=== PATIENT | male | born 1990 ===

== ENCOUNTER 2020-02-16 10:08 | Emergency (ER) | payer BC, MEDICAID ==
[2020-02-16 10:20] VITALS: TEMP 98.3
[2020-02-16 10:30] VITALS: RESP 20
[2020-02-16] MEDS ORDERED: IPRATROPIUM-ALBUTEROL 3 ML NEB INHALATION STA (10:36)
[2020-02-16] MEDS ORDERED: ACETAMINOPHEN TAB 325 MG TAB PO STA (10:37)
--- NOTE | 2020-02-16 11:21 | ED ---
URI HPI - General Chief Complaint: Upper Respiratory Infection Stated Complaint: covid symptoms Time Seen by Provider: 02/16/20 10:21 Source: patient, RN notes reviewed Mode of arrival: ambulatory Limitations: no limitations - History of Present Illness Initial Comments: This is a 30-year-old male presents emergency Department chief complaint of cough congestion. Patient states she's been sick last few days. Patient's daughter was seen in emergency department 3 days ago diagnosed with croup. 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 He reports fever at home along with increased nasal congestion, coughing. Patient states cough is nonproductive. Denies any shortness breath this time as he did region but has had some shortness of breath. - Related Data Home Medications Medication Instructions Recorded Confirmed Ibuprofen [Motrin Ib] 600 mg PO Q8H PRN 02/16/20 02/16/20 diphenhydrAMINE [Benadryl] 25 mg PO HS PRN 02/16/20 02/16/20 Previous Rx's Medication Instructions Recorded Azithromycin [Zithromax Z-pack] 0 mg PO DIRECTED #1 pack 02/16/20 Allergies Allergy/AdvReac Type Severity Reaction Status Date / Time Penicillins Allergy Rash/Hives Verified 02/16/20 10:56 Review of Systems ROS Statement: Those systems with pertinent positive or pertinent negative responses have been documented in the HPI. ROS Other: All systems not noted in ROS Statement are negative. Past Medical History Past Medical History: No Reported History History of Any Multi-Drug Resistant Organisms: None Reported Past Surgical History: Tonsillectomy Past Psychological History: Anxiety Smoking Status: Current every day smoker Past Alcohol Use History: Occasional Past Drug Use History: None Reported General Exam Limitations: no limitations General appearance: alert, in no apparent distress Head exam: Present: atraumatic, normocephalic, normal inspection Eye exam: Present: normal appearance, PERRL, EOMI. Absent: scleral icterus, conjunctival injection, periorbital swelling ENT exam: Present: normal exam, mucous membranes moist, TM's normal bilaterally Neck exam: Present: normal inspection, full ROM. Absent: tenderness, meningismus, lymphadenopathy Respiratory exam: Present: wheezes, rhonchi. Absent: normal lung sounds bilaterally, respiratory distress, rales, stridor Cardiovascular Exam: Present: regular rate, normal rhythm, normal heart sounds. Absent: systolic murmur, diastolic murmur, rubs, gallop, clicks GI/Abdominal exam: Present: soft, normal bowel sounds. Absent: distended, tenderness, guarding, rebound, rigid Back exam: Absent: CVA tenderness (R), CVA tenderness (L) Neurological exam: Present: alert, oriented X3 Skin exam: Present: warm, dry, intact, normal color. Absent: rash Course Vital Signs 02/16/20 02/16/20 02/16/20 10:16 10:28 11:20 Temperature 98.3 F Pulse Rate 99 110 H 106 H Respiratory 18 20 Rate Blood Pressure 139/84 O2 Sat by Pulse 98 96 Oximetry 02/16/20 11:30 Temperature Pulse Rate 104 H Respiratory Rate Blood Pressure O2 Sat by Pulse Oximetry Medical Decision Making - Medical Decision Making X-ray does not show any definite pneumonia though there is some increasing bronchial thickening in the right. Patient may have some tracheobronchitis be treated with azithromycin. Patient did have elevated testing which is pending he will have follow up for results and return for any worsening symptoms. Disposition Clinical Impression: Tracheobronchitis Disposition: HOME SELF-CARE Condition: Stable Instructions (If sedation given, give patient instructions): Upper Respiratory Infection (ED) Additional Instructions: Please follow up on COVID testing.Please return to the Emergency Department if symptoms worsen or any other concerns. Prescriptions: Azithromycin [Zithromax Z-pack] 0 mg PO DIRECTED #1 pack Is patient prescribed a controlled substance at d/c from ED?: No Referrals: Sridhar Mcguire DO [Primary Care Provider] - 1-2 days Time of Disposition: 11:55
--- NOTE | 2020-02-16 11:28 | XR ---
EXAMINATION TYPE: XR chest 2V DATE OF EXAM: 02/16/2020 CLINICAL HISTORY: Cough, shortness of breath TECHNIQUE: Frontal and lateral views of the chest are obtained. COMPARISON: Chest radiograph 02/22/2019 FINDINGS: The cardiomediastinal silhouette is within normal limits for size. Pulmonary vasculature i s normal. There is no focal air space opacity, pleural effusion, or pneumothorax seen. The osseous st ructures are intact. IMPRESSION: No acute cardiopulmonary process.
[2020-02-16 12:19] VITALS: BP 138/76; PULSE 93
== END 2020-02-16 12:21 | disposition home or self-care (01) ==
LOC: EC 10:08
DX: J40 Bronchitis, not specified as acute or chronic (principal); F17.200 Nicotine dependence, unspecified, uncomplicated; Z88.0 Allergy status to penicillin; Z20.828 Contact with and (suspected) exposure to other viral communicable diseases
CPT/HCPCS: 94640; 71046; 99283; U0003

== ENCOUNTER 2020-09-22 14:31 | Emergency (ER) | payer MEDICAID ==
[2020-09-22 14:40] VITALS: BP 148/80; TEMP 99.1
[2020-09-22] MEDS ORDERED: IPRATROPIUM-ALBUTEROL 3 ML NEB INHALATION STA ×2 (14:58→17:43)
[2020-09-22] MEDS ORDERED: ACETAMINOPHEN TAB 500 MG TAB PO STA (14:58)
[2020-09-22] MEDS ORDERED: methylPREDNISolone SOD SUCCI 125 MG/2 ML VIAL IV STA (14:58)
[2020-09-22] MEDS ORDERED: ALBUTEROL HFA INHALER INHALATION STA (15:05)
--- NOTE | 2020-09-22 15:23 | ED ---
General Adult HPI - General Chief complaint: Chest Pain Stated complaint: Chest pain Time Seen by Provider: 09/22/20 14:35 Source: patient, RN notes reviewed, old records reviewed Mode of arrival: wheelchair Limitations: no limitations - History of Present Illness Initial comments: This is a 30-year-old male who presents emergency Department with a past medical history significant for asthma. Patient comes in complaining of a 2 day history of difficulty breathing and some congestion. 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 Patient denies any fevers. Patient states he has some sharp chest pain particularly with deep breathing or coughing. Patient states she's developed a cough today. Patient denies any abdominal pain patient denies any loss of smell or taste per patient denies any diarrhea. - Related Data Previous Rx's Medication Instructions Recorded Ipratropium-Albuterol Nebulize 3 ml INHALATION Q4H #60 neb 09/22/20 [Duoneb 0.5 mg-3 mg/3 ml Soln] predniSONE [Deltasone] 40 mg PO DAILY #8 tab 09/22/20 Allergies Allergy/AdvReac Type Severity Reaction Status Date / Time Penicillins Allergy Rash/Hives Verified 09/22/20 15:47 Review of Systems ROS Statement: Those systems with pertinent positive or pertinent negative responses have been documented in the HPI. ROS Other: All systems not noted in ROS Statement are negative. Past Medical History Past Medical History: Asthma History of Any Multi-Drug Resistant Organisms: None Reported Past Surgical History: Tonsillectomy Past Psychological History: Anxiety Smoking Status: Former smoker Past Alcohol Use History: Rare Past Drug Use History: None Reported General Exam - General Exam Comments Initial Comments: GENERAL: Patient is well-developed and well-nourished. Patient is nontoxic and well- hydrated and is in no acute distress. ENT: Neck is soft and supple. No significant lymphadenopathy is noted. Oropharynx is clear. Moist mucous membranes. Neck has full range of motion without eliciting any pain. EYES: The sclera were anicteric and conjunctiva were pink and moist. Extraocular movements were intact and pupils were equal round and reactive to light. Eyelids were unremarkable. PULMONARY: Patient has diffuse wheezing and crackles bilaterally. CARDIOVASCULAR: There is a regular rate and rhythm without any murmurs gallops or rubs. ABDOMEN: Soft and nontender with normal bowel sounds. SKIN: Skin is clear with no lesions or rashes and otherwise unremarkable. NEUROLOGIC: Patient is alert and oriented x3. Cranial nerves II through XII are grossly intact. Motor and sensory are also intact. Normal speech, volume and content. Symmetrical smile. MUSCULOSKELETAL: Normal extremities with adequate strength and full range of motion. LYMPHATICS: No significant lymphadenopathy is noted PSYCHIATRIC: Normal psychiatric evaluation. Limitations: no limitations Course Vital Signs 09/22/20 09/22/20 09/22/20 14:36 16:58 17:10 Temperature 99.1 F Pulse Rate 110 H 86 88 Respiratory 22 18 18 Rate Blood Pressure 148/80 O2 Sat by Pulse 94 L Oximetry Medical Decision Making - Medical Decision Making EKG shows sinus tachycardia at 106 bpm NH interval 150 QRS is 98 QT interval 326 QTC is 433. Patient's EKG shows no ST segment elevation or depression. Patient's chest x-ray shows changes consistent with asthma. Patient received 3 breathing treatments in the emergency department was had between 8889 while ambulatory however some easy sat down he was satting 92-93. I suggest the patient stay and be admitted to the hospital however he spoke with his who is an RN and they felt comfortable going home his lungs had some albuterol at home. - Lab Data Result diagrams: 09/22/20 15:16 09/22/20 15:16 Lab Results 09/22/20 09/22/20 09/22/20 Range/Units 15:16 15:16 15:16 WBC 12.7 H (3.8-10.6) k/uL RBC 5.11 (4.30-5.90) m/uL Hgb 16.2 (13.0-17.5) gm/dL Hct 47.7 (39.0-53.0) % MCV 93.4 (80.0-100.0) fL MCH 31.6 (25.0-35.0) pg MCHC 33.9 (31.0-37.0) g/dL RDW 12.0 (11.5-15.5) % Plt Count 150 (150-450) k/uL MPV 9.1 Neutrophils % 81 % Lymphocytes % 9 % Monocytes % 5 % Eosinophils % 4 % Basophils % 0 % Neutrophils # 10.2 H (1.3-7.7) k/uL Lymphocytes # 1.1 (1.0-4.8) k/uL Monocytes # 0.7 (0-1.0) k/uL Eosinophils # 0.5 (0-0.7) k/uL Basophils # 0.0 (0-0.2) k/uL PT 10.8 (9.0-12.0) sec INR 1.0 (<1.2) APTT 25.1 (22.0-30.0) sec D-Dimer 0.21 (<0.60) mg/L FEU Sodium 142 (137-145) mmol/L Potassium 4.4 (3.5-5.1) mmol/L Chloride 106 (98-107) mmol/L Carbon Dioxide 28 (22-30) mmol/L Anion Gap 8 mmol/L BUN 6 L (9-20) mg/dL Creatinine 0.94 (0.66-1.25) mg/dL Est GFR (CKD-EPI)AfAm >90 (>60 ml/min/1.73 sqM) Est GFR (CKD-EPI)NonAf >90 (>60 ml/min/1.73 sqM) Glucose 100 H (74-99) mg/dL Plasma Lactic Acid Abraham (0.7-2.0) mmol/L Calcium 9.3 (8.4-10.2) mg/dL Magnesium 2.0 (1.6-2.3) mg/dL Total Bilirubin 0.7 (0.2-1.3) mg/dL AST 22 (17-59) U/L ALT 26 (4-49) U/L Alkaline Phosphatase 90 (38-126) U/L Lactate Dehydrogenase 453 (313-618) U/L Troponin I (0.000-0.034) ng/mL C-Reactive Protein 31.7 H (<10.0) mg/L Total Protein 7.4 (6.3-8.2) g/dL Albumin 4.5 (3.5-5.0) g/dL Coronavirus (PCR) (Not Detectd) 09/22/20 09/22/20 09/22/20 Range/Units 15:16 15:16 15:16 WBC (3.8-10.6) k/uL RBC (4.30-5.90) m/uL Hgb (13.0-17.5) gm/dL Hct (39.0-53.0) % MCV (80.0-100.0) fL MCH (25.0-35.0) pg MCHC (31.0-37.0) g/dL RDW (11.5-15.5) % Plt Count (150-450) k/uL MPV Neutrophils % % Lymphocytes % % Monocytes % % Eosinophils % % Basophils % % Neutrophils # (1.3-7.7) k/uL Lymphocytes # (1.0-4.8) k/uL Monocytes # (0-1.0) k/uL Eosinophils # (0-0.7) k/uL Basophils # (0-0.2) k/uL PT (9.0-12.0) sec INR (<1.2) APTT (22.0-30.0) sec D-Dimer (<0.60) mg/L FEU Sodium (137-145) mmol/L Potassium (3.5-5.1) mmol/L Chloride (98-107) mmol/L Carbon Dioxide (22-30) mmol/L Anion Gap mmol/L BUN (9-20) mg/dL Creatinine (0.66-1.25) mg/dL Est GFR (CKD-EPI)AfAm (>60 ml/min/1.73 sqM) Est GFR (CKD-EPI)NonAf (>60 ml/min/1.73 sqM) Glucose (74-99) mg/dL Plasma Lactic Acid Abraham 1.3 (0.7-2.0) mmol/L Calcium (8.4-10.2) mg/dL Magnesium (1.6-2.3) mg/dL Total Bilirubin (0.2-1.3) mg/dL AST (17-59) U/L ALT (4-49) U/L Alkaline Phosphatase (38-126) U/L Lactate Dehydrogenase (313-618) U/L Troponin I <0.012 (0.000-0.034) ng/mL C-Reactive Protein (<10.0) mg/L Total Protein (6.3-8.2) g/dL Albumin (3.5-5.0) g/dL Coronavirus (PCR) Not Detected (Not Detectd) Disposition Clinical Impression: Asthma exacerbation Disposition: HOME SELF-CARE Instructions (If sedation given, give patient instructions): Asthma (ED) Prescriptions: predniSONE [Deltasone] 40 mg PO DAILY #8 tab Ipratropium-Albuterol Nebulize [Duoneb 0.5 mg-3 mg/3 ml Soln] 3 ml INHALATION Q4H #60 neb Is patient prescribed a controlled substance at d/c from ED?: No Referrals: Sridhar Mcguire DO [Primary Care Provider] - 1-2 days Time of Disposition: 17:48
[2020-09-22 16:00] LABS: Basophils % (A) 0 %; Eosinophils # (A) 0.5 k/uL (0-0.7); Eosinophils % (A) 4 %; HCT 47.7 % (39.0-53.0); HGB 16.2 gm/dL (13.0-17.5); Lymphocytes # (A) 1.1 k/uL (1.0-4.8); Lymphocytes % (A) 9 %; MCH 31.6 pg (25.0-35.0); MCHC 33.9 g/dL (31.0-37.0); MCV 93.4 fL (80.0-100.0); Mean Platelet Volume 9.1; Monocytes # (A) 0.7 k/uL (0-1.0); Monocytes % (A) 5 %; Neutrophils # (A) 10.2 k/uL (1.3-7.7); Neutrophils % (A) 81 %; Platelet Count 150 k/uL (150-450); RBC 5.11 m/uL (4.30-5.90); WBC 12.7 k/uL (3.8-10.6)
[2020-09-22 16:10] LABS: ALT 26 U/L (4-49); AST 22 U/L (17-59); African American GFR (CKD) >90 (>60 ml/min/1.73 sqM); Albumin 4.5 g/dL (3.5-5.0); Alkaline Phosphatase 90 U/L (38-126); Anion Gap 8 mmol/L; Blood Urea Nitrogen 6 mg/dL (9-20); C Reactive Protein 31.7 mg/L (<10.0); Calcium 9.3 mg/dL (8.4-10.2); Carbon Dioxide 28 mmol/L (22-30); Chloride 106 mmol/L (98-107); Glucose 100 mg/dL (74-99); LDH 453 U/L (313-618); Non-African American GFR(CKD) >90 (>60 ml/min/1.73 sqM); Potassium 4.4 mmol/L (3.5-5.1); Sodium 142 mmol/L (137-145); Total Bilirubin 0.7 mg/dL (0.2-1.3); Total Protein 7.4 g/dL (6.3-8.2)
--- NOTE | 2020-09-22 16:10 | XR ---
EXAMINATION TYPE: XR chest 1V portable DATE OF EXAM: 09/22/2020 Comparison: 02/16/2020 Clinical History: 30-year-old male cough and congestion, shortness of breath, Suspected COVID-19 pneu monia Findings: The cardiomediastinal silhouette, aorta, and pulmonary vasculature are within normal limits. Peribro nchial cuffing is increased. Mild interstitial density has also increased bilaterally. No chon conso lidation or pleural effusion. Impression: Interval increase in interstitial density and peribronchial cuffing. While findings could reflect bro nchitis or chronic asthma, follow-up can be performed if concern for early COVID pneumonia.
[2020-09-22 16:14] LABS: D-Dimer 0.21 mg/L FEU (<0.60); Partial Thromboplastin Time 25.1 sec (22.0-30.0); Prothrombin Time 10.8 sec (9.0-12.0)
[2020-09-22] MEDS ORDERED: IPRATROPIUM 0.5 MG/2.5 ML NEBU INHALATION STA (16:34)
[2020-09-22 18:21] VITALS: RESP 17
[2020-09-22 18:22] VITALS: PULSE 84
[2020-09-23 06:46] LABS: Ferritin 166.2 ng/mL (22.0-322.0)
== END 2020-09-22 18:29 | disposition home or self-care (01) ==
LOC: EC 14:31
DX: J45.901 Unspecified asthma with (acute) exacerbation (principal); Z20.822 Contact with and (suspected) exposure to COVID-19; Z88.0 Allergy status to penicillin; Z87.891 Personal history of nicotine dependence; Z90.89 Acquired absence of other organs
CPT/HCPCS: 36415; 94640 ×2; 93005; 85379; 80053; 82728; 83605; 83615; 83735; 84484; 85025; 85610; 85730; 86140; 87040; 84145; 87635; 71045; 99285; 96374; J2930

== ENCOUNTER → 2022-07-29 | Outpatient (CLI) | payer MEDICAID ==
[2022-07-29 15:27] LABS: Basophils # (A) 0.04 X 10*3/uL (0.00-0.10); Basophils % (A) 0.5 %; Eosinophils # (A) 0.51 X 10*3/uL (0.04-0.35); Eosinophils % (A) 6.7 %; HCT 49.3 % (39.6-50.0); HGB 16.1 g/dL (13.0-17.0); Immature Grans, Automated 0.4 %; Lymphocytes # (A) 2.25 X 10*3/uL (0.90-5.00); Lymphocytes % (A) 29.4 %; MCH 30.6 pg (27.0-32.0); MCHC 32.7 g/dL (32.0-37.0); MCV 93.7 fL (80.0-97.0); Mean Platelet Volume 12.4 fL (9.5-12.2); Monocytes # (A) 0.65 X 10*3/uL (0.20-1.00); Monocytes % (A) 8.5 %; NRBC Per 100 WBC 0 /100 WBCS (0.0-0.0); Neutrophils # (A) 4.18 X 10*3/uL (1.80-7.70); Neutrophils % (A) 54.5 %; Platelet Count 159 X 10*3/uL (140-440); RBC 5.26 X 10*6/uL (4.40-5.60); RDW 12.3 % (11.5-14.5); WBC 7.66 X 10*3/uL (4.50-10.00)
[2022-07-29 17:14] LABS: ALT 30 U/L (10-49); AST 16 U/L (14-35); African American GFR (CKD) 105.9 (60.0-200.0); Albumin 4.7 g/dL (3.8-4.9); Albumin/Globulin Ratio 1.99 (1.60-3.17); Alkaline Phosphatase 99 U/L (41-126); BUN/Creat Ratio 7.51 Ratio (12.00-20.00); Calcium 9.6 mg/dL (8.7-10.3); Carbon Dioxide 22.9 mmol/L (20.0-27.5); Chloride 105 mmol/L (96-109); Chol/HDL Ratio 6.55 Ratio; Globulin 2.4 g/dL (1.6-3.3); Glucose 94 mg/dL (70-110); LDL Cholesterol,Calculated 94.1 mg/dL (0.0-131.0); Non-African American GFR(CKD) 91.4 (60.0-200.0); Potassium 4.6 mmol/L (3.5-5.5); Sodium 143 mmol/L (135-145)
== END | disposition home or self-care (01) ==
LOC: LABWHC1 09:28
PROVIDERS: ATTEND Internal Medicine Critical Care Medicine
DX: Z00.00 Encounter for general adult medical examination without abnormal findings (principal); Z88.9 Allergy status to unspecified drugs, medicaments and biological substances; J45.909 Unspecified asthma, uncomplicated
CPT/HCPCS: 36415; 80053; 80061; 82306; 83036; 84153; 84439; 84443; 85025